=== PATIENT | female | born 1990 | race Caucasian/White ===

== ENCOUNTER 2019-03-04 10:09 | Emergency (ER) | payer OTHER ==
[~2019-03-04] VITALS: Ht 157.5 cm; Wt 68.0 kg
== END 2019-03-04 13:24 | disposition home or self-care (01) ==
LOC: ER 10:09
DX: H66.41 Suppurative otitis media, unspecified, right ear (principal); H92.01 Otalgia, right ear; R09.81 Nasal congestion; R05 Cough